=== PATIENT | female | born 1985 ===

== ENCOUNTER 2017-03-29 08:06 | Inpatient (IN) | payer BC, OTHER ==
[~2017-03-29] VITALS: Ht 172.7 cm; Wt 54.4 kg
[2017-03-29 13:03] LABS: *URINE HCG, QUAL NEGATIVE (NEGATIVE)
[2017-03-29 13:43] LABS: *AMPHETAMINE, URINE NEGATIVE (NEGATIVE); *BARBITURATE, URINE NEGATIVE (NEGATIVE); *CANNABINOID, URINE NEGATIVE (NEGATIVE); *COCCAINE, URINE POSITIVE (NEGATIVE); *OPIATE, URINE POSITIVE (NEGATIVE); *PHENCYCLIDINE SCREEN,URINE NEGATIVE (NEGATIVE)
[2017-03-29] MEDS ORDERED: IBUP-1481 PO (13:51)
[2017-03-29] MEDS ORDERED: CETI-102 PO (13:51)
[2017-03-29] MEDS ORDERED: ONDA-26 PO (13:51)
[2017-03-29] MEDS ORDERED: [UNRECOGNIZED DRUG - CODE] MC (13:51)
[2017-03-29] MEDS ORDERED: LAMO150T PO (13:51)
[2017-03-29] MEDS ORDERED: DIPH25TA25 PO (13:51)
[2017-03-29] MEDS ORDERED: ASCO250T6 PO (13:51)
[2017-03-29] MEDS ORDERED: DOCU-170 PO (13:51)
[2017-03-29] MEDS ORDERED: LAMO25TA PO (13:51)
[2017-03-29] MEDS ORDERED: BISA-79 PO (13:51)
[2017-03-29] MEDS ORDERED: ACET-2030 PO (13:51)
[2017-03-29] MEDS ORDERED: TRAZ150T75 PO (13:51)
[2017-03-29] MEDS ORDERED: CALC-469 PO (13:51)
[2017-03-29] MEDS ORDERED: ESCI10TA PO (13:51)
[2017-03-29 14:00] VITALS: BP 133/92
[2017-03-29] MEDS ORDERED: ACETAMINOPHEN 325 MG TABLET PO PRN (15:00)
[2017-03-29] MEDS ORDERED: DICYCLOMINE HCL 20 MG TABLET PO PRN (15:00)
[2017-03-29] MEDS ORDERED: MIRALAX 17 GM POWD.PACK PO PRN (15:00)
[2017-03-29] MEDS ORDERED: LOPERAMIDE HCL 2 MG CAPSULE PO PRN ×2 (15:00)
[2017-03-29] MEDS ORDERED: MAGNESIUM HYDROXIDE 30 ML LIQUID UDC PO PRN (15:00)
[2017-03-29] MEDS ORDERED: IBUPROFEN 600 MG TABLET PO PRN (15:00)
[2017-03-29] MEDS ORDERED: diphenhydrAMINE 50 MG CAPSULE PO PRN (15:00)
[2017-03-29] MEDS ORDERED: MAG HYDROX/AL HYDROX/SIMETH 30 ML LIQUID UDC PO PRN (15:00)
[2017-03-29] MEDS ORDERED: BUPRENORPHINE HCL 2 MG TAB.SUBL SL PRN (15:00)
[2017-03-29] MEDS ORDERED: ONDANSETRON ODT 4 MG TAB.RAPDIS SL PRN (15:00)
[2017-03-29 16:00] VITALS: BP 138/95
[2017-03-29] MEDS: HYDROXYZINE PAMOATE 25 MG CAPSULE PO PRN (16:23)
[2017-03-29] MEDS ORDERED: LORAZEPAM 1 MG TABLET PO PRN ×2 (17:00)
[2017-03-29] MEDS ORDERED: LORAZEPAM 2 MG/1 ML VIAL IM PRN (17:00)
[2017-03-29] MEDS ORDERED: LORAZEPAM 1 MG TABLET PO ONE (17:00)
[2017-03-29] MEDS ORDERED: THIAMINE HCL 200 MG/2 ML VIAL IM ONE (17:00)
[2017-03-29 17:37] LABS: BASOPHILS # (AUTO) 0.1 K/uL (0.0-8.0); BASOPHILS % (AUTO) 0.8 % (0.0-2.0); EOSINOPHILS # (AUTO) 0.3 K/uL (0.0-0.7); EOSINOPHILS % (AUTO) 4.3 % (0.0-7.0); HEMATOCRIT 40.6 % (37-47); HEMOGLOBIN 13.5 G/DL (12.0-16.0); LYMPHOCYTES # (AUTO) 2.5 K/UL (0.8-4.8); LYMPHOCYTES % (AUTO) 31.2 % (20.5-51.5); MEAN CORPUSCULAR HEMOGLOBIN 30.3 UUG (27.0-31.0); MEAN CORPUSCULAR HGB CONC 33 g/dL (32.0-37.0); MEAN CORPUSCULAR VOLUME 91.2 FL (81.0-99.0); MONOCYTES # (AUTO) 0.8 K/UL (0.1-1.30); MONOCYTES % (AUTO) 10.2 % (0.0-11.0); NEUTROPHILS # (AUTO) 4.4 K/UL (1.8-8.9); NEUTROPHILS % (AUTO) 53.5 % (38.5-71.5); PLATELET COUNT (AUTO) 370 K/UL (150-450); RED BLOOD CELL COUNT(AUTO) 4.45 MIL/UL (4.2-5.4); RED CELL DISTRIBUTION WIDTH 13.1 % (11.5-14.5); WHITE BLOOD COUNT (AUTO) 8.1 K/UL (4.0-11.2)
[2017-03-29 17:59] LABS: ETHANOL < 3 MG/DL (0-0)
[2017-03-29 18:04] LABS: ALANINE AMINOTRANSFERASE 29 U/L (14-59); ALKALINE PHOSPHATASE 77 U/L (50-136); ASPARTATE AMINOTRANSFERASE 37 U/L (15-37); BILIRUBIN,TOTAL 0.4 mg/dL (0.2-1.0); CALCIUM 8.8 mg/dL (8.5-10.1); CARBON DIOXIDE 28 mmol/L (21-32); CHLORIDE 100 mmol/L (98-107); CREATININE 0.6 mg/dL (0.6-1.3); GFR 116 mL/min (>60); GLUCOSE 110 mg/dL (74-106); MAGNESIUM 2.1 mg/dL (1.8-2.4); POTASSIUM 3.9 mmol/L (3.5-5.1); SODIUM SERUM 138 mmol/L (136-145); TOTAL PROTEIN, SERUM 7.4 g/dL (6.4-8.2); UREA NITROGEN, BLOOD 4 mg/dL (7-18)
[2017-03-29] MEDS: IV NS 1000 ML 1,000 ML IV PRN (18:07)
[2017-03-29 18:13] LABS: THYROID STIMULATING HORMONE 2.634 mIU/mL (0.358-3.740)
[2017-03-29 18:20] LABS: HIV-1 p24 ANTIGEN NON REACTIVE (NONREACTIVE); HIV-1/2 ANTIBODY NON REACTIVE (NONREACTIVE)
[2017-03-29 20:00] VITALS: BP 93/72
[2017-03-29] MEDS: TRAZODONE 100 MG TABLET PO SCH (21:00)
[2017-03-29] MEDS: GABAPENTIN 300 MG CAPSULE PO SCH (21:00)
[2017-03-29] MEDS: CETIRIZINE HCL 10 MG TABLET PO SCH (21:00)
[2017-03-30] VITALS: BP 96/61
[2017-03-30] MEDS: METHOCARBAMOL 750 MG TABLET PO PRN (03:14)
[2017-03-30] MEDS: IBUPROFEN 800 MG TABLET PO PRN (03:14)
[2017-03-30] MEDS: CLONIDINE HCL 0.1 MG TABLET PO PRN (03:15)
[2017-03-30] MEDS: IV NS 1000 ML 1,000 ML IV PRN ×2 (03:17→18:02)
[2017-03-30 04:15] VITALS: BP 87/53
[2017-03-30] MEDS: PANTOPRAZOLE SODIUM 40 MG VIAL IV SCH (07:06)
[2017-03-30 08:00] VITALS: BP 100/65
[2017-03-30] MEDS ORDERED: MULTIVITAMINS,THERAPEUTIC TABLET PO SCH (09:00)
[2017-03-30] MEDS ORDERED: LAMOTRIGINE 100 MG TABLET PO SCH (09:00)
[2017-03-30] MEDS ORDERED: LAMOTRIGINE 25 MG TABLET PO SCH ×2 (09:00)
[2017-03-30] MEDS ORDERED: TUBERCULIN,PURIF.PROT.DERIV. 5 TU/0.1 ML TEST ID ONE (09:00)
[2017-03-30] MEDS: GABAPENTIN 300 MG CAPSULE PO SCH ×2 (09:33→14:42)
[2017-03-30] MEDS: MULTIVITAMINS,THERAPEUTIC TABLET PO SCH (09:33)
[2017-03-30] MEDS: LAMOTRIGINE 100 MG TABLET PO SCH (09:34)
[2017-03-30] MEDS: FOLIC ACID 1 MG TABLET PO SCH (09:34)
[2017-03-30] MEDS: BUPRENORPHINE HCL 2 MG TAB.SUBL SL SCH ×3 (09:35→21:48)
[2017-03-30] MEDS: THIAMINE HCL 100 MG TABLET PO SCH (09:35)
[2017-03-30 12:00] VITALS: BP 114/77
[2017-03-30] MEDS ORDERED: BUPRENORPHINE HCL 2 MG TAB.SUBL SL ONE (12:15)
[2017-03-30] MEDS ORDERED: LORAZEPAM 1 MG TABLET PO ONE (12:15)
[2017-03-30] MEDS ORDERED: MIRALAX 17 GM POWD.PACK PO PRN (14:15)
[2017-03-30] MEDS ORDERED: MAGNESIUM HYDROXIDE 30 ML LIQUID UDC PO ONE (14:15)
[2017-03-30 16:00] VITALS: BP 109/72
[2017-03-30] MEDS ORDERED: LORAZEPAM 1 MG TABLET PO PRN ×2 (16:30)
[2017-03-30] MEDS: NEOMY/BACITRAC/POLYMI OINT 28.35 GM TUBE TOP SCH (18:00)
[2017-03-30 20:00] VITALS: BP 108/65
[2017-03-30] MEDS ORDERED: GABAPENTIN 300 MG CAPSULE PO SCH (21:00)
[2017-03-30] MEDS ORDERED: LORAZEPAM 1 MG TABLET PO SCH (21:00)
[2017-03-30] MEDS: CETIRIZINE HCL 10 MG TABLET PO SCH (21:00)
[2017-03-30] MEDS: BACLOFEN 10 MG TABLET PO SCH (21:46)
[2017-03-30] MEDS: DICYCLOMINE HCL 20 MG TABLET PO SCH (21:47)
[2017-03-30] MEDS: TRAZODONE 100 MG TABLET PO SCH (21:48)
[2017-03-31] VITALS: BP 110/68
[2017-03-31] MEDS: IBUPROFEN 800 MG TABLET PO PRN (00:44)
[2017-03-31] MEDS: IV NS 1000 ML 1,000 ML IV PRN (03:14)
[2017-03-31 04:00] VITALS: BP 105/62
[2017-03-31] MEDS: PANTOPRAZOLE SODIUM 40 MG VIAL IV SCH (06:55)
[2017-03-31] MEDS: BACLOFEN 10 MG TABLET PO SCH (08:24)
[2017-03-31] MEDS: DICYCLOMINE HCL 20 MG TABLET PO SCH ×3 (08:24→21:07)
[2017-03-31] MEDS: DOCUSATE SODIUM 250 MG CAPSULE PO SCH (08:24)
[2017-03-31] MEDS: LAMOTRIGINE 100 MG TABLET PO SCH (08:25)
[2017-03-31] MEDS: MULTIVITAMINS,THERAPEUTIC TABLET PO SCH (08:25)
[2017-03-31] MEDS: THIAMINE HCL 100 MG TABLET PO SCH (08:25)
[2017-03-31] MEDS: FOLIC ACID 1 MG TABLET PO SCH (08:25)
[2017-03-31] MEDS: LORAZEPAM 1 MG TABLET PO SCH ×3 (08:26→21:07)
[2017-03-31 08:44] LABS: CALCIUM 8.3 mg/dL (8.5-10.1); CREATININE 0.8 mg/dL (0.6-1.3); MAGNESIUM 1.9 mg/dL (1.8-2.4); PHOSPHOROUS 2.8 mg/dL (2.5-4.9)
[2017-03-31 09:00] VITALS: BP 102/68
[2017-03-31] MEDS ORDERED: BUPRENORPHINE HCL 2 MG TAB.SUBL SL SCH (09:00)
[2017-03-31] MEDS ORDERED: GABAPENTIN 300 MG CAPSULE PO SCH (09:00)
[2017-03-31 09:08] LABS: BASOPHILS # (AUTO) 0.1 K/uL (0.0-8.0); BASOPHILS % (AUTO) 0.8 % (0.0-2.0); EOSINOPHILS # (AUTO) 0.4 K/uL (0.0-0.7); HEMATOCRIT 40.1 % (37-47); HEMOGLOBIN 13.3 G/DL (12.0-16.0); LYMPHOCYTES # (AUTO) 3.1 K/UL (0.8-4.8); LYMPHOCYTES % (AUTO) 45.3 % (20.5-51.5); MEAN CORPUSCULAR HEMOGLOBIN 30.7 UUG (27.0-31.0); MEAN CORPUSCULAR HGB CONC 33 g/dL (32.0-37.0); MEAN CORPUSCULAR VOLUME 92.5 FL (81.0-99.0); MONOCYTES # (AUTO) 0.9 K/UL (0.1-1.30); MONOCYTES % (AUTO) 11.9 % (0.0-11.0); NEUTROPHILS # (AUTO) 2.7 K/UL (1.8-8.9); PLATELET COUNT (AUTO) 373 K/UL (150-450); RED BLOOD CELL COUNT(AUTO) 4.33 MIL/UL (4.2-5.4); WHITE BLOOD COUNT (AUTO) 7.2 K/UL (4.0-11.2)
[2017-03-31] MEDS: NEOMY/BACITRAC/POLYMI OINT 28.35 GM TUBE TOP SCH ×2 (10:01→17:00)
[2017-03-31 13:11] VITALS: BP 121/77
[2017-03-31] MEDS: BACLOFEN 20 MG TABLET PO SCH ×2 (14:16→21:08)
[2017-03-31] MEDS: BUPRENORPHINE HCL 2 MG TAB.SUBL SL SCH ×2 (14:17→21:07)
[2017-03-31] MEDS: GABAPENTIN 300 MG CAPSULE PO SCH ×2 (14:17→21:07)
[2017-03-31] MEDS: HYDROXYZINE PAMOATE 25 MG CAPSULE PO PRN (14:30)
[2017-03-31] MEDS: CLONIDINE HCL 0.1 MG TABLET PO PRN (14:30)
[2017-03-31] MEDS ORDERED: BACLOFEN 10 MG TABLET PO SCH (15:00)
[2017-03-31 16:44] VITALS: BP 130/89
[2017-03-31] MEDS ORDERED: BISACODYL 10 MG SUPP.RECT RC PRN (18:45)
[2017-03-31] MEDS ORDERED: LORAZEPAM 1 MG TABLET PO ONE (19:00)
[2017-03-31] MEDS ORDERED: CLONIDINE HCL 0.1 MG TABLET PO ONE (19:00)
[2017-03-31 20:00] VITALS: BP 131/93
[2017-03-31] MEDS: CETIRIZINE HCL 10 MG TABLET PO SCH (21:00)
[2017-03-31] MEDS: TRAZODONE 100 MG TABLET PO SCH (21:08)
[2017-04-01] VITALS: BP 122/76
[2017-04-01 04:00] VITALS: BP 102/59
[2017-04-01] MEDS: PANTOPRAZOLE SODIUM 40 MG TABLET.DR PO SCH (06:55)
[2017-04-01 08:49] VITALS: BP 113/78
[2017-04-01] MEDS: THIAMINE HCL 100 MG TABLET PO SCH (08:51)
[2017-04-01] MEDS: FOLIC ACID 1 MG TABLET PO SCH (08:51)
[2017-04-01] MEDS: DOCUSATE SODIUM 250 MG CAPSULE PO SCH (08:51)
[2017-04-01] MEDS: LORAZEPAM 1 MG TABLET PO SCH ×2 (08:51→22:36)
[2017-04-01] MEDS: DICYCLOMINE HCL 20 MG TABLET PO SCH ×3 (08:51→22:36)
[2017-04-01] MEDS: BUPRENORPHINE HCL 2 MG TAB.SUBL SL SCH ×3 (08:51→22:37)
[2017-04-01] MEDS: MULTIVITAMINS,THERAPEUTIC TABLET PO SCH (08:51)
[2017-04-01] MEDS: GABAPENTIN 300 MG CAPSULE PO SCH ×3 (08:52→22:35)
[2017-04-01] MEDS: LAMOTRIGINE 100 MG TABLET PO SCH (08:52)
[2017-04-01] MEDS: NEOMY/BACITRAC/POLYMI OINT 28.35 GM TUBE TOP SCH ×2 (08:52→16:21)
[2017-04-01] MEDS: BACLOFEN 20 MG TABLET PO SCH ×3 (08:52→22:36)
[2017-04-01] MEDS ORDERED: MAGNESIUM CITRATE 296 ML BOTTLE PO ONE (13:00)
[2017-04-01] MEDS ORDERED: LIDOCAINE 1%-EPI 1:100,000 20 ML VIAL TP PRN (13:00)
[2017-04-01] MEDS ORDERED: FLEET ENEMA 133 ML BOTTLE RC PRN (13:00)
[2017-04-01 14:12] VITALS: BP 111/65
[2017-04-01 14:14] LABS: HCV AB <0.1 s/co ratio (0.0-0.9); HEPATITIS B CORE AB, IgM Negative (Negative); HEPATITIS B SURFACE AG Negative (Negative)
[2017-04-01] MEDS: HYDROXYZINE PAMOATE 25 MG CAPSULE PO PRN (14:33)
[2017-04-01] MEDS: IBUPROFEN 800 MG TABLET PO PRN (14:34)
[2017-04-01] MEDS: CLONIDINE HCL 0.1 MG TABLET PO PRN (17:07)
[2017-04-01 17:42] VITALS: BP 113/76
[2017-04-01 20:16] VITALS: BP 137/77
[2017-04-01] MEDS: CETIRIZINE HCL 10 MG TABLET PO SCH (22:36)
[2017-04-02 00:15] VITALS: BP 116/80
[2017-04-02] MEDS: IBUPROFEN 800 MG TABLET PO PRN (01:45)
[2017-04-02] MEDS: TRAZODONE 100 MG TABLET PO SCH ×2 (01:46→22:21)
[2017-04-02 04:14] VITALS: BP 89/61
[2017-04-02] MEDS: PANTOPRAZOLE SODIUM 40 MG TABLET.DR PO SCH (06:49)
[2017-04-02 08:00] VITALS: BP 112/75
[2017-04-02] MEDS ORDERED: LORAZEPAM 1 MG TABLET PO SCH (09:00)
[2017-04-02] MEDS: NEOMY/BACITRAC/POLYMI OINT 28.35 GM TUBE TOP SCH ×2 (09:00→17:20)
[2017-04-02] MEDS ORDERED: BUPRENORPHINE HCL 2 MG TAB.SUBL SL SCH (09:00)
[2017-04-02] MEDS: MULTIVITAMINS,THERAPEUTIC TABLET PO SCH (10:21)
[2017-04-02] MEDS: THIAMINE HCL 100 MG TABLET PO SCH (10:21)
[2017-04-02] MEDS: GABAPENTIN 300 MG CAPSULE PO SCH ×3 (10:21→22:19)
[2017-04-02] MEDS: BACLOFEN 20 MG TABLET PO SCH (10:22)
[2017-04-02] MEDS: DOCUSATE SODIUM 250 MG CAPSULE PO SCH (10:22)
[2017-04-02] MEDS: FOLIC ACID 1 MG TABLET PO SCH (10:22)
[2017-04-02] MEDS: LAMOTRIGINE 100 MG TABLET PO SCH (10:22)
[2017-04-02] MEDS: DICYCLOMINE HCL 20 MG TABLET PO SCH ×3 (10:23→22:20)
[2017-04-02 12:00] VITALS: BP 117/78
[2017-04-02] MEDS ORDERED: BACLOFEN 20 MG TABLET PO PRN (12:45)
[2017-04-02 15:35] LABS: *AMPHETAMINE, URINE NEGATIVE (NEGATIVE); *BARBITURATE, URINE NEGATIVE (NEGATIVE); *CANNABINOID, URINE NEGATIVE (NEGATIVE); *COCCAINE, URINE NEGATIVE (NEGATIVE); *OPIATE, URINE NEGATIVE (NEGATIVE); *PHENCYCLIDINE SCREEN,URINE NEGATIVE (NEGATIVE)
[2017-04-02] MEDS: CLONIDINE HCL 0.1 MG TABLET PO PRN (15:35)
[2017-04-02] MEDS: HYDROXYZINE PAMOATE 25 MG CAPSULE PO PRN (15:35)
[2017-04-02 16:00] VITALS: BP 128/75
[2017-04-02] MEDS ORDERED: Gabapentin PO ×2 (16:15)
[2017-04-02] MEDS ORDERED: Baclofen PO (16:15)
[2017-04-02] MEDS ORDERED: Docusate Sodium PO (16:15)
[2017-04-02] MEDS ORDERED: HYDR-3895 PO (16:15)
[2017-04-02] MEDS ORDERED: Ibuprofen PO (16:15)
[2017-04-02] MEDS ORDERED: DICY20TA28 PO (16:15)
[2017-04-02] MEDS ORDERED: PANT40TA2 PO (16:15)
[2017-04-02 20:00] VITALS: BP 103/65
[2017-04-02] MEDS: LORAZEPAM 1 MG TABLET PO SCH (21:00)
[2017-04-02] MEDS: CETIRIZINE HCL 10 MG TABLET PO SCH (22:19)
[2017-04-02] MEDS: BUPRENORPHINE HCL 2 MG TAB.SUBL SL SCH (22:23)
[2017-04-03] VITALS: BP 107/70
[2017-04-03 04:00] VITALS: BP 96/58
[2017-04-03] MEDS: PANTOPRAZOLE SODIUM 40 MG TABLET.DR PO SCH (07:00)
[2017-04-03 08:00] VITALS: BP 100/60
[2017-04-03] MEDS: THIAMINE HCL 100 MG TABLET PO SCH (08:48)
[2017-04-03] MEDS: IBUPROFEN 800 MG TABLET PO PRN (08:48)
[2017-04-03] MEDS: MULTIVITAMINS,THERAPEUTIC TABLET PO SCH (08:48)
[2017-04-03] MEDS: DOCUSATE SODIUM 250 MG CAPSULE PO SCH (08:48)
[2017-04-03] MEDS: FOLIC ACID 1 MG TABLET PO SCH (08:48)
[2017-04-03] MEDS: LAMOTRIGINE 100 MG TABLET PO SCH (08:48)
[2017-04-03] MEDS: DICYCLOMINE HCL 20 MG TABLET PO SCH ×3 (08:48→20:11)
[2017-04-03] MEDS: LORAZEPAM 1 MG TABLET PO SCH (08:49)
[2017-04-03] MEDS: GABAPENTIN 300 MG CAPSULE PO SCH ×3 (08:49→20:13)
[2017-04-03] MEDS: BUPRENORPHINE HCL 2 MG TAB.SUBL SL SCH (08:49)
[2017-04-03] MEDS: NEOMY/BACITRAC/POLYMI OINT 28.35 GM TUBE TOP SCH ×2 (08:50→16:50)
[2017-04-03 12:00] VITALS: BP 118/63
[2017-04-03] MEDS: HYDROXYZINE PAMOATE 25 MG CAPSULE PO PRN ×2 (14:05→20:14)
[2017-04-03] MEDS: CLONIDINE HCL 0.1 MG TABLET PO PRN ×2 (14:06→20:14)
[2017-04-03 16:00] VITALS: BP 116/80
[2017-04-03 17:52] LABS: *AMPHETAMINE, URINE NEGATIVE (NEGATIVE); *BARBITURATE, URINE NEGATIVE (NEGATIVE); *CANNABINOID, URINE NEGATIVE (NEGATIVE); *COCCAINE, URINE NEGATIVE (NEGATIVE); *OPIATE, URINE NEGATIVE (NEGATIVE); *PHENCYCLIDINE SCREEN,URINE NEGATIVE (NEGATIVE)
[2017-04-03 20:00] VITALS: BP 128/76
[2017-04-03] MEDS: TRAZODONE 100 MG TABLET PO SCH (20:12)
[2017-04-03] MEDS: CETIRIZINE HCL 10 MG TABLET PO SCH (20:13)
[2017-04-03] MEDS: METHOCARBAMOL 750 MG TABLET PO PRN (20:14)
[2017-04-04] MEDS: PANTOPRAZOLE SODIUM 40 MG TABLET.DR PO SCH (06:58)
[2017-04-04 08:00] VITALS: BP 115/73
[2017-04-04] MEDS: HYDROXYZINE PAMOATE 25 MG CAPSULE PO PRN (08:44)
[2017-04-04] MEDS: GABAPENTIN 300 MG CAPSULE PO SCH (08:45)
[2017-04-04] MEDS: IBUPROFEN 800 MG TABLET PO PRN (08:45)
[2017-04-04] MEDS: THIAMINE HCL 100 MG TABLET PO SCH (08:45)
[2017-04-04] MEDS: FOLIC ACID 1 MG TABLET PO SCH (08:45)
[2017-04-04] MEDS: LAMOTRIGINE 100 MG TABLET PO SCH (08:45)
[2017-04-04] MEDS: DICYCLOMINE HCL 20 MG TABLET PO SCH (08:45)
[2017-04-04] MEDS: DOCUSATE SODIUM 250 MG CAPSULE PO SCH (08:45)
[2017-04-04] MEDS: MULTIVITAMINS,THERAPEUTIC TABLET PO SCH (08:46)
[2017-04-04] MEDS: NEOMY/BACITRAC/POLYMI OINT 28.35 GM TUBE TOP SCH (08:46)
== END 2017-04-04 10:55 | DRG 988 ==
LOC: SRC 12:12
PROVIDERS: ADMIT Internal Medicine; ATTEND Internal Medicine
PROC: HZ2ZZZZ Detoxification Services for Substance Abuse Treatment (ICD-10-PCS; principal; 2017-03-29)
PROC: HZ41ZZZ Group Counseling for Substance Abuse Treatment, Behavioral (ICD-10-PCS; 2017-03-30)
PROC: 0U9MXZZ Drainage of Vulva, External Approach (ICD-10-PCS; 2017-04-01)
DX: F11.23 Opioid dependence with withdrawal (principal); N76.4 Abscess of vulva; F10.230 Alcohol dependence with withdrawal, uncomplicated; Y90.9 Presence of alcohol in blood, level not specified; G47.00 Insomnia, unspecified; J30.2 Other seasonal allergic rhinitis; E86.0 Dehydration; F17.210 Nicotine dependence, cigarettes, uncomplicated; F43.12 Post-traumatic stress disorder, chronic; X58.XXXS Exposure to other specified factors, sequela; E06.3 Autoimmune thyroiditis; L08.9 Local infection of the skin and subcutaneous tissue, unspecified; M50.90 Cervical disc disorder, unspecified, unspecified cervical region; G89.29 Other chronic pain; K59.03 Drug induced constipation; M54.5 Low back pain; F39 Unspecified mood [affective] disorder; F11.229 Opioid dependence with intoxication, unspecified
CPT/HCPCS: 36415; 70030-TC; 80307; 83735; 84100; 84443; 84703; 85025; 86580; 86592; 86705; 86803; 87340; 87806; C9113; G6040-TC; J3411; J3490; J7030; Q0162